=== PATIENT | male | born 1945 | race Caucasian/White ===

== ENCOUNTER → 2017-08-03 | Outpatient (CLI) | payer MEDICARE, BC ==
[~2017-08-03] MED LIST: LEVOTHYROXINE; LISINOPRIL; METOPROLOL
--- NOTE | 2017-08-03 10:19 | Diagnostic Imaging Report ---
PROCEDURE:X-RAY UPPER GI SERIES WITH AIR CONTRAST COMPARISON:None. INDICATIONS:DYSPHAGIA TECHNIQUE:Routine double contrast upper GI utilizing thin barium, thick barium and effervescent crystals. Fluoroscopy time: 41.49 mGy. Air Kerma: 1.3 min. FINDINGS: Normal swallow and gastroesophageal motility. Moderate gastroesophageal reflux extending up to the mid esophagus. Normal mucosal caliber, contour and distensibility. Small sliding-type hiatal hernia. Normal gastric mucosal contour and distensibility. No unremarkable duodenal sweep. CONCLUSION: Small sliding-type hiatal hernia with moderate gastroesophageal reflux. Dictated by: Andrew Raya M.D. on 08/03/2017 at 10:19 Electronically approved by: Andrew Raya M.D. on 08/03/2017 at 10:19
== END ==
LOC: DX 07:40
PROVIDERS: ATTEND Internal Medicine Cardiovascular Disease
DX: I10 Essential (primary) hypertension (principal); E78.2 Mixed hyperlipidemia
CPT/HCPCS: 74246